=== PATIENT | female | born 2000 | race Hispanic/Latino ===

== ENCOUNTER 2020-12-13 12:46 | Emergency (ER) | payer SELFPAY ==
--- NOTE | 2020-12-13 13:34 | ER ---
Nurse's Notes [facility] Name: Kenyatta Sims Age: 20 yrs Sex: Female : 2000 Arrival Date: 12/13/2020 Time: 12:47 Bed Waiting Private MD: Diagnosis: ED Course: 12/13 12:47 Patient arrived in ED. ds1 12:57 Patient states she is feeling better at this time. Does not want to triage right now. ll1 13:20 Patient In restroom, still doesn't want to be seen yet. ll1 13:33 Patient Feeling better, does not want to be seen today. States she will come back if ll1 she starts to feel bad again. Administered Medications: No medications were administered Outcome: 13:33 Patient left the ED. ll1 Signatures: Lupis Tinajero ds1 Prabhjot Hutchinson, RN RN ll1
[2020-12-13] MEDS ORDERED: ONDANSETRON 4 MG/2 ML VIAL ONE (15:04)
[2020-12-13] MEDS ORDERED: NA CHLORIDE 0.9% 1,000 ML ONE (15:04)
[2020-12-13] MEDS ORDERED: THIAMINE 200 MG/2 ML INJ ONE (15:04)
== END 2020-12-13 13:33 | disposition left against medical advice (07) ==
LOC: ER 12:46
DX: Z53.21 Procedure and treatment not carried out due to patient leaving prior to being seen by health care provider (principal)
CPT/HCPCS: J2405; J3411; J7030

== ENCOUNTER 2020-12-13 14:17 | Emergency (ER) | payer SELFPAY ==
[2020-12-13 14:57] LABS: Absolute Lymphocytes (CBC) 2.1 K/uL (0.7-4.9); Basophils % 0.4 % (0-1.3); Lymphocytes % 23.3 % (15.3-44.8); MPV 6.5 fL (7.6-11.3); RBC Red Blood Cell Count 4.53 M/uL (3.86-4.86)
[2020-12-13 14:59] LABS: Protime INR 1.1
[2020-12-13 15:36] LABS: ALT/SGPT 67 U/L (12-78); AST/SGOT 30 U/L (15-37); BUN Blood Urea Nitrogen 9 mg/dL (7-18); Bicarbonate 20 mmol/L (21-32); Glucose Level 100 mg/dL (74-106); Potassium 3.3 mmol/L (3.5-5.1); Sodium Level 144 mmol/L (136-145)
[2020-12-13 15:37] LABS: Albumin 4.2 g/dL (3.4-5.0); Alkaline Phosphatase 47 U/L (45-117); Bilirubin Direct < 0.1 mg/dL (0-0.2); Bilirubin Total 0.3 mg/dL (0.2-1.0); Protein, Total 8.6 g/dL (6.4-8.2)
[2020-12-13 16:24] LABS: Urine Blood Trace-intact (Negative); Urine Glucose Negative (Negative); Urine Protein Negative (Negative); Urine Specific Gravity >=1.030 (1.005-1.030); Urine pH 6.5 (5.0-7.0)
--- NOTE | 2020-12-13 16:39 | EDPHYS ---
Physician Documentation [facility] Name: Kenyatta Sims Age: 20 yrs Sex: Female : 2000 Arrival Date: 12/13/2020 Time: 14:17 Bed 14 Private MD: SHEMAR Physician Marcel Hester HPI: 12/13 16:33 This 20 yrs old Female presents to ER via Wheelchair with complaints of donovan Vomiting, Dehydration. 16:33 The patient presents to the emergency department with nausea, vomiting, that is donovan intermittent. Onset: The symptoms/episode began/occurred 1 day(s) ago. Possible causes: alcohol. The symptoms are aggravated by movement, The symptoms are alleviated by nothing. Associated signs and symptoms: Pertinent positives: nausea, vomiting. Severity of symptoms: At their worst the symptoms were mild in the emergency department the symptoms are unchanged. The patient has experienced a previous episode, last night. 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 - Social history:: Smoking status: Patient denies any tobacco usage or history of. ROS: 16:35 Constitutional: Negative for fever, chills, and weight loss, Eyes: Negative for injury, donovan pain, redness, and discharge, ENT: Negative for injury, pain, and discharge, Neck: Negative for injury, pain, and swelling, Cardiovascular: Negative for chest pain, palpitations, and edema, Respiratory: Negative for shortness of breath, cough, wheezing, and pleuritic chest pain, Back: Negative for injury and pain, : Negative for injury, bleeding, discharge, and swelling, MS/Extremity: Negative for injury and deformity, Skin: Negative for injury, rash, and discoloration, Neuro: Negative for headache, weakness, numbness, tingling, and seizure, Psych: Negative for depression, anxiety, suicide ideation, homicidal ideation, and hallucinations, Allergy/Immunology: Negative for hives, rash, and allergies, Endocrine: Negative for neck swelling, polydipsia, polyuria, polyphagia, and marked weight changes, Hematologic/Lymphatic: Negative for swollen nodes, abnormal bleeding, and unusual bruising. 16:35 Abdomen/GI: Positive for nausea and vomiting. Exam: 16:35 Constitutional: This is a well developed, well nourished patient who is awake, alert, donovan and in no acute distress. Head/Face: Normocephalic, atraumatic. Eyes: Pupils equal round and reactive to light, extra-ocular motions intact. Lids and lashes normal. Conjunctiva and sclera are non-icteric and not injected. Cornea within normal limits. Periorbital areas with no swelling, redness, or edema. ENT: Nares patent. No nasal discharge, no septal abnormalities noted. Tympanic membranes are normal and external auditory canals are clear. Oropharynx with no redness, swelling, or masses, exudates, or evidence of obstruction, uvula midline. Mucous membranes moist. Neck: Trachea midline, no thyromegaly or masses palpated, and no cervical lymphadenopathy. Supple, full range of motion without nuchal rigidity, or vertebral point tenderness. No Meningismus. Chest/axilla: Normal chest wall appearance and motion. Nontender with no deformity. No lesions are appreciated. Cardiovascular: Regular rate and rhythm with a normal S1 and S2. No gallops, murmurs, or rubs. Normal PMI, no JVD. No pulse deficits. Respiratory: Lungs have equal breath sounds bilaterally, clear to auscultation and percussion. No rales, rhonchi or wheezes noted. No increased work of breathing, no retractions or nasal flaring. Abdomen/GI: Soft, non-tender, with normal bowel sounds. No distension or tympany. No guarding or rebound. No evidence of tenderness throughout. Back: No spinal tenderness. No costovertebral tenderness. Full range of motion. Skin: Warm, dry with normal turgor. Normal color with no rashes, no lesions, and no evidence of cellulitis. MS/ Extremity: Pulses equal, no cyanosis. Neurovascular intact. Full, normal range of motion. Neuro: Awake and alert, GCS 15, oriented to person, place, time, and situation. Cranial nerves II-XII grossly intact. Motor strength 5/5 in all extremities. Sensory grossly intact. Cerebellar exam normal. Normal gait. Psych: Awake, alert, with orientation to person, place and time. Behavior, mood, and affect are within normal limits. 16:35 Musculoskeletal/extremity: DVT Exam: No signs of deep vein thrombosis. no pain, no swelling, no tenderness, negative Homans' sign noted on exam, no appreciated bluish discoloration, no erythema, no increased warmth. 16:41 ECG was reviewed by the Attending Physician. [facility] Vital Signs: 14:26 BP 143 / 97; Pulse 74; Resp 18; Temp 97.8; Pulse Ox 98% ; Weight 65.77 kg; Height 5 ft. ll1 2 in. (157.48 cm); Pain 5/10; 14:26 Body Mass Index 26.52 (65.77 kg, 157.48 cm) ll1 MDM: 14:28 Patient medically screened. [facility] 16:39 Differential diagnosis: viral gastroenteritis, gastroenteritis. Data reviewed: vital donovan signs, nurses notes, lab test result(s), EKG, radiologic studies, CT scan, plain films. 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 rate is 74 beats/min, rhythm is regular, Pulse oximetry: on room air is 98 %. Counseling: I had a detailed discussion with the patient and/or guardian regarding: the historical points, exam findings, and any diagnostic results supporting the discharge/admit diagnosis, lab results, the need for outpatient follow up, for definitive care, a family practitioner. 12/13 14:29 Order name: Acetaminophen [facility] 12/13 14:29 Order name: Basic Metabolic Panel [facility] 12/13 14:29 Order name: CBC with Diff; Complete Time: 16:33 [facility] 12/13 14:29 Order name: ETOH Level; Complete Time: 16:33 [facility] 12/13 14:29 Order name: Hepatic Function; Complete Time: 16:33 [facility] 12/13 14:29 Order name: PT-INR; Complete Time: 16:33 [facility] 12/13 14:29 Order name: Ptt, Activated; Complete Time: 16:33 [facility] 12/13 14:29 Order name: Salicylate; Complete Time: 16:33 [facility] 12/13 14:29 Order name: Urine Drug Screen [facility] 12/13 14:30 Order name: Acetaminophen Level; Complete Time: 16:33 EDMS 12/13 14:30 Order name: Basic Metabolic Panel; Complete Time: 16:33 EDPA 12/13 16:24 Order name: Urine Dipstick-Ancillary; Complete Time: 16:33 EDPA 12/13 16:27 Order name: Urine --Ancillary (enter results) 12/13 16:27 Order name: Urine --Ancillary [facility] 12/13 14:29 Order name: EKG; Complete Time: 14:30 [facility] 12/13 14:29 Order name: EKG - Nurse/Tech; Complete Time: 16:04 [facility] 12/13 14:29 Order name: IV Saline Lock; Complete Time: 14:43 [facility] 12/13 14:29 Order name: Labs collected and sent; Complete Time: 14:43 [facility] 12/13 14:29 Order name: Suicide Screening ([place]); Complete Time: 14:45 [facility] 12/13 14:29 Order name: Urine Dipstick-Ancillary (obtain specimen); Complete Time: 16:28 [facility] 12/13 14:29 Order name: Urine Test (obtain specimen); Complete Time: 16:28 [facility] 12/13 16:33 Order name: PO challenge: 2 juices; Complete Time: 16:43 [facility] EC:41 Rate is 67 beats/min. Rhythm is regular. QRS [place] is Normal. MI interval is normal. QRS donovan interval is normal. QT interval is normal. No Q waves. T waves are Normal. No ST changes noted. Clinical impression: NSR w/ Non-specific ST/T Changes and No evidence of ischemia. Interpreted by me. Reviewed by me. Administered Medications: 14:44 Drug: Thiamine 100 mg Route: IV; Rate: per protocol; Site: right antecubital; jw6 14:45 Follow up: Response: No adverse reaction; IV Status: Completed infusion jw6 14:44 Drug: Zofran (Ondansetron) 4 mg Route: IVP; Site: left antecubital; jw6 14:45 Follow up: Response: No adverse reaction jw6 14:45 Drug: NS 0.9% 1000 ml Route: IV; Rate: 1 bolus; Site: right antecubital; jw6 16:04 Follow up: IV Status: Completed infusion; IV Intake: 1000ml jw6 Disposition Summary: 12/13/20 16:38 Discharge Ordered Location: Home donovan Problem: new donovan Symptoms: have improved donovan Condition: Stable donovan Diagnosis - Vomiting donovan - Alcohol abuse, uncomplicated donovan - Hypokalemia donovan Followup: donovan - With: Private Physician - When: 2 - 3 days - Reason: Recheck today's complaints, Continuance of care, Re-evaluation by your physician Discharge Instructions: - Discharge Summary Sheet donovan - Alcohol Use Disorder donovan - Potassium Content of Foods donovan - Alcohol Abuse and Nutrition donovan - Hypokalemia donovan - Vomiting, Adult donovan Forms: - Medication Reconciliation Form donovan - Thank You Letter donovan - Antibiotic Education donovan - Prescription Opioid Use donovan Prescriptions: - Zofran 4 mg Oral Tablet - take 1 tablet by ORAL route every 12 hours As needed; 20 tablet; Refills: 0, donovan Product Selection Permitted Signatures: Dispatcher [employer] EDMarcel Day MD MD cha Lewis, Lynsay RN RN ll1 Lorraine Greenwood 6
--- NOTE | 2020-12-13 16:39 | ER ---
Nurse's Notes [facility] Name: Kenyatta Sims Age: 20 yrs Sex: Female : 2000 Arrival Date: 12/13/2020 Time: 14:17 Bed 14 Private MD: Diagnosis: Vomiting;Alcohol abuse, uncomplicated;Hypokalemia Presentation: 12/13 14:26 Chief complaint: Patient states: N/V/D started today after drinking alcohol last night. ll1 No fever. States she did the same thing last month. Coronavirus screen: Vaccine status: Patient reports being unvaccinated. Client denies travel out of the [place] in the last 14 days. At this time, the client does not indicate any symptoms associated with coronavirus-19. Ebola Screen: Patient denies travel to an Ebola-affected area in the 21 days before illness onset. Initial Sepsis Screen: Does the patient meet any 2 criteria? No. Patient's initial sepsis screen is negative. Does the patient have a suspected source of infection? No. Patient's initial sepsis screen is negative. Risk Assessment: Do you want to hurt yourself or someone else? Patient reports no desire to harm self or others. Onset of symptoms was December 13, 2020. 14:26 Method Of Arrival: Wheelchair ll1 14:26 Acuity: DOMINGA 3 ll1 Triage Assessment: 14:45 General: Appears uncomfortable, Behavior is calm. Pain: Denies pain. GI: Reports jw6 diarrhea, nausea, vomiting. 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 - Social history:: Smoking status: Patient denies any tobacco usage or history of. Screenin:04 Abuse screen: Denies threats or abuse. Denies injuries from another. Nutritional jw6 screening: No deficits noted. Tuberculosis screening: No symptoms or risk factors identified. Fall Risk IV access (20 points). Assessment: 15:04 General: Appears in no apparent distress. Behavior is calm. Pain: Denies pain. Neuro: jw6 No deficits noted. Cardiovascular: No deficits noted. Respiratory: No deficits noted. GI: Abdomen is flat, non-distended. : No deficits noted. EENT: No deficits noted. Derm: No deficits noted. Musculoskeletal: No deficits noted. Vital Signs: 14:26 BP 143 / 97; Pulse 74; Resp 18; Temp 97.8; Pulse Ox 98% ; Weight 65.77 kg; Height 5 ft. ll1 2 in. (157.48 cm); Pain 5/10; 14:26 Body Mass Index 26.52 (65.77 kg, 157.48 cm) 1 ED Course: 14:17 Patient arrived in ED. as 14:25 Lorraine Greenwood is Primary Nurse. jw6 14:27 Triage completed. 1 14:27 Arm band placed on Patient placed in an exam room, on a stretcher. 1 14:28 Marcel Hester MD is Attending Physician. [facility] 14:40 Initial lab(s) drawn, by la, sent to lab. Inserted saline lock: 20 gauge in left dh3 antecubital area, using aseptic technique. Blood collected. 15:04 Patient has correct armband on for positive identification. Bed in low position. Call jw6 light in reach. Side rails up X 1. Adult w/ patient. 15:04 No provider procedures requiring assistance completed. jw6 16:07 EKG done, by ED staff, reviewed by Marcel Hester MD. 5 16:08 Warm blanket given. surveillance monitor on. Pulse ox on. NIBP on. 5 16:28 Urine --Ancillary (enter results) Sent. jw6 16:47 Acetaminophen Sent. jw6 16:47 Basic Metabolic Panel Sent. jw6 16:54 IV discontinued, intact, bleeding controlled, No redness/swelling at site. Pressure jw6 dressing applied. Administered Medications: 14:44 Drug: Thiamine 100 mg Route: IV; Rate: per protocol; Site: right antecubital; jw6 14:45 Follow up: Response: No adverse reaction; IV Status: Completed infusion jw6 14:44 Drug: Zofran (Ondansetron) 4 mg Route: IVP; Site: left antecubital; jw6 14:45 Follow up: Response: No adverse reaction jw6 14:45 Drug: NS 0.9% 1000 ml Route: IV; Rate: 1 bolus; Site: right antecubital; jw6 16:04 Follow up: IV Status: Completed infusion; IV Intake: 1000ml jw6 Intake: 16:04 IV: 1000ml; Total: 1000ml. jw6 Outcome: 16:38 Discharge ordered by . donovan 16:54 Discharged to home ambulatory. jw6 16:54 Condition: good 16:54 Discharge instructions given to patient, Instructed on discharge instructions, follow up and referral plans. no drinking with medication, medication usage, Demonstrated understanding of instructions, follow-up care, medications, Prescriptions given X 1. 17:13 Patient left the ED. jw6 Signatures: Marcel Hester MD MD cha Martinez, Alize Contreras [facility] Louie, Ronda 3 Prabhjot Hutchinson RN RN 1 Lorraine Greenwood jw6
[2020-12-13 16:59] LABS: Barbiturates NEGATIVE (NEGATIVE); Benzodiazepines NEGATIVE (NEGATIVE); Cocaine NEGATIVE (NEGATIVE); METHAMPHETAM NEGATIVE (NEGATIVE); Methadone NEGATIVE (NEGATIVE); Opiates NEGATIVE (NEGATIVE); Phencyclidine NEGATIVE (NEGATIVE); THC Cannibis POSITIVE (NEGATIVE)
[2020-12-13 17:34] VITALS: BP 143/97; TEMP 97.8; O2SAT 98
== END 2020-12-13 17:13 | disposition home or self-care (01) ==
LOC: ER 14:17
DX: R11.10 Vomiting, unspecified (principal); E87.6 Hypokalemia; F10.10 Alcohol abuse, uncomplicated
CPT/HCPCS: 36415; 80048; 80076; 80307; 80320; 80329; 81003; 81025; 85025; 85610; 85730; 93005; 99284